=== PATIENT | female | born 1965 | race Caucasian/White ===

== ENCOUNTER 2024-02-28 17:37 | Inpatient (IN) | payer BC, OTHER ==
[~2024-02-28] VITALS: Ht 160 cm; Wt 119.1 kg
[2024-02-28 18:14] LABS: BASOPHILS % (AUTO) 0.3 % (0-1); EOSINOPHILS # (AUTO) 0.1 X10'3 (0-0.9); EOSINOPHILS % (AUTO) 1.7 % (0-6); HEMATOCRIT 41.7 % (35.0-45.0); HEMOGLOBIN 14.5 g/dl (12.0-16.0); LYMPHOCYTES # (AUTO) 1.6 X10'3 (1.1-4.8); LYMPHOCYTES % (AUTO) 21.3 % (21-51); MEAN CORPUSCULAR HEMOGLOBIN 32.1 PG (27.0-31.0); MEAN CORPUSCULAR HGB CONC 34.7 g/dL (33.0-36.5); MEAN CORPUSCULAR VOLUME 92.7 FL (78-98); MEAN PLATELET VOLUME 7.2 FL (7.4-10.4); MONOCYTES # (AUTO) 0.4 X10'3 (0-0.9); MONOCYTES % (AUTO) 5.9 % (2-12); NEUTROPHILS # (AUTO) 5.2 X10'3 (1.8-7.7); NEUTROPHILS % (AUTO) 70.8 % (42-75); PLATELET COUNT 150 X10'3 (140-440); RED CELL DISTRIBUTION WIDTH 13.3 % (11.5-14.5); WHITE BLOOD COUNT 7.4 X10'3 (4.5-11.0)
[2024-02-28 18:34] LABS: ALANINE AMINOTRANSFERASE 29 U/L (12-78); ALBUMIN 3.7 G/DL (3.4-5.0); ALKALINE PHOSPHATASE 123 IU/L (46-116); ANION GAP 8 (8-16); ASPARTATE AMINO TRANSFERASE 21 U/L (10-37); BILIRUBIN,TOTAL 0.7 MG/DL (0.1-1.0); BLOOD UREA NITROGEN 24 MG/DL (7-18); BUN/CREATININE RATIO 18.2 (10.0-20.0); CALCIUM 9.2 MG/DL (8.5-10.1); CHLORIDE 105 MMOL/L (99-107); CREATININE 1.32 MG/DL (0.40-0.90); GLUCOSE 105 MG/DL (70-104); POTASSIUM 3.9 MMOL/L (3.5-5.1); SODIUM 141 MMOL/L (135-145); TOTAL CARBON DIOXIDE 27.7 MMOL/L (24-32); TOTAL PROTEIN 7.5 G/DL (6.4-8.2); eCRCL 38 ML/MIN; eGFR 41 ML/MIN
[2024-02-28 18:41] LABS: PRO BRAIN NATRIURETIC PEPTIDE 130 PG/ML (0-125)
[2024-02-28] MEDS ORDERED: iohexol 350MG/ML 100ml bottle IV ONE (19:44)
[2024-02-28] MEDS: heparin 10,000 units/1 ML INJ IV ONE ×2 (19:45→21:17)
[2024-02-28 19:58] LABS: APTT 25 SECONDS (22-32); PROTHROMBIN TIME 10.3 SECONDS (9.0-12.0)
[2024-02-28] MEDS: aspirin 81mg tab.chew PO ONE (20:03)
[2024-02-28] MEDS: morphine 4 MG/ML inj SYRINge IV ONE ×2 (20:15→21:57)
[2024-02-28] MEDS ORDERED: potassium Cl 20 mEq SR tablet PO PRN ×2 (21:10)
[2024-02-28] MEDS ORDERED: magnesium sulf-water 4G/100mL 100 ML IV PRN (21:10)
[2024-02-28] MEDS ORDERED: magnesium sulf-water 2g/50mL 50 ML IV PRN (21:10)
[2024-02-28] MEDS ORDERED: magnesium Cl slow-release 64mg tablet PO PRN (21:10)
[2024-02-28] MEDS ORDERED: ondansetron/PF 4mg/2ml inj IV PRN (21:10)
[2024-02-28] MEDS ORDERED: potassium Cl 40MEQ/1/2NS 520ml 520 ML IV PRN (21:10)
[2024-02-28] MEDS ORDERED: mag hydrox/Alum hydrox/simeth 30ml oral suspension PO PRN (21:10)
[2024-02-28] MEDS ORDERED: magnesium hydroxide 30ml (MOM) UD suspension PO PRN (21:10)
[2024-02-28] MEDS: heparin 25,000 UNIT/250ml bag 250 ML IV PRN (21:19)
[2024-02-28] MEDS: nitroGLYCERIN 1gm ointment UD TP ONE (21:57)
[2024-02-28] MEDS: normal saline 1000ml 1,000 ML IV SCH (21:57)
[2024-02-28] MEDS: MESSAGE TO NURSING IV ONE (22:57)
[2024-02-29] VITALS (10 sets, daily range): BP systolic 96–143; BP diastolic 50–86; PULSE 66–74; RESP 13–20; TEMP 96.2–98; O2SAT 93–98
[2024-02-29] MEDS ORDERED: BACL20TA PO (00:46)
[2024-02-29] MEDS ORDERED: LORA-269 PO (00:46)
[2024-02-29] MEDS ORDERED: MELO-102 PO (00:46)
[2024-02-29] MEDS ORDERED: BUPR300T53 PO (00:46)
[2024-02-29] MEDS ORDERED: METO-411 PO (00:46)
[2024-02-29] MEDS ORDERED: ROSU40TA PO (00:46)
[2024-02-29] MEDS ORDERED: ZOLP5TAB8 PO (00:46)
[2024-02-29] MEDS ORDERED: ISOS30TA84 PO (00:46)
[2024-02-29] MEDS ORDERED: FURO-150 PO (00:46)
[2024-02-29] MEDS ORDERED: FLUT1BLS4 INH (00:46)
[2024-02-29] MEDS ORDERED: ASPI81TA52 PO (00:46)
[2024-02-29] MEDS ORDERED: POTA-208 PO (00:46)
[2024-02-29] MEDS ORDERED: ESCI20TA51 PO (00:46)
[2024-02-29] MEDS: zolpidem 5mg tablet PO ONE (02:33)
[2024-02-29 04:02] LABS: BASOPHILS % (AUTO) 0.2 % (0-1); EOSINOPHILS # (AUTO) 0.1 X10'3 (0-0.9); EOSINOPHILS % (AUTO) 2.1 % (0-6); HEMATOCRIT 39.1 % (35.0-45.0); HEMOGLOBIN 13.7 g/dl (12.0-16.0); LYMPHOCYTES # (AUTO) 2.4 X10'3 (1.1-4.8); LYMPHOCYTES % (AUTO) 43.1 % (21-51); MEAN CORPUSCULAR HGB CONC 34.9 g/dL (33.0-36.5); MEAN CORPUSCULAR VOLUME 91.6 FL (78-98); MEAN PLATELET VOLUME 7.2 FL (7.4-10.4); MONOCYTES # (AUTO) 0.3 X10'3 (0-0.9); MONOCYTES % (AUTO) 5.4 % (2-12); NEUTROPHILS # (AUTO) 2.7 X10'3 (1.8-7.7); NEUTROPHILS % (AUTO) 49.2 % (42-75); PLATELET COUNT 119 X10'3 (140-440); RED BLOOD COUNT 4.27 X10'6 (4.20-5.60); RED CELL DISTRIBUTION WIDTH 13.3 % (11.5-14.5); WHITE BLOOD COUNT 5.5 X10'3 (4.5-11.0)
[2024-02-29 04:16] LABS: ALANINE AMINOTRANSFERASE 25 U/L (12-78); ALBUMIN 3.5 G/DL (3.4-5.0); ALKALINE PHOSPHATASE 106 IU/L (46-116); ANION GAP 7 (8-16); ASPARTATE AMINO TRANSFERASE 20 U/L (10-37); BILIRUBIN,TOTAL 0.9 MG/DL (0.1-1.0); BLOOD UREA NITROGEN 22 MG/DL (7-18); BUN/CREATININE RATIO 23.7 (10.0-20.0); CALCIUM 8.4 MG/DL (8.5-10.1); CHLORIDE 104 MMOL/L (99-107); CREATININE 0.93 MG/DL (0.40-0.90); GLUCOSE 98 MG/DL (70-104); POTASSIUM 3.6 MMOL/L (3.5-5.1); SODIUM 138 MMOL/L (135-145); TOTAL CARBON DIOXIDE 27.2 MMOL/L (24-32); TOTAL PROTEIN 6.9 G/DL (6.4-8.2); eCRCL 54 ML/MIN; eGFR 62 ML/MIN
[2024-02-29] MEDS: heparin 10,000 units/1 ML INJ IV PRN (04:33)
[2024-02-29] MEDS: MESSAGE TO NURSING IV ONE ×2 (04:36→11:30)
[2024-02-29] MEDS ORDERED: metoprolol succinate 25mg (24-HOUR) SR. Tablet PO SCH (08:00)
[2024-02-29] MEDS: UMECLIDIN IH SCH (08:00)
[2024-02-29] MEDS: VILANTER IH SCH (08:00)
[2024-02-29] MEDS: docusate sod 100mg capsule PO SCH (08:00)
[2024-02-29] MEDS: FLUTICASONE IH SCH (08:00)
[2024-02-29] MEDS: K and/or MAG REPLACEMENT MC SCH (08:00)
[2024-02-29] MEDS: nitroGLYCERIN 0.4mg SUBLingual tab SL PRN (09:48)
[2024-02-29] MEDS: potassium Cl 20 mEq SR tablet PO SCH (09:54)
[2024-02-29] MEDS: atorvastatin 20mg tablet PO SCH (09:55)
[2024-02-29] MEDS: isosorbide mononitrate 30mg tab.SR.24H PO SCH (09:55)
[2024-02-29] MEDS: BUPROPION HCL 150MG XL 24 HR 150 MG TAB PO SCH (09:55)
[2024-02-29] MEDS ORDERED: morphine 4 MG/ML inj SYRINge IV PRN (10:15)
[2024-02-29] MEDS ORDERED: nitroGLYCERIN-Tridil 50MG/D5W 250 ML IV SCH (10:20)
[2024-02-29] MEDS: acetaminophen 325mg tablet PO PRN (10:29)
[2024-02-29] MEDS ORDERED: heparin 1,000unit/ml 10ml vial 10 ML ONE (10:48)
[2024-02-29] MEDS ORDERED: fentaNYL/PF 50MCG/1 ML 2ML syringe ONE (10:48)
[2024-02-29] MEDS ORDERED: LIDOcaine 1% 30ml preserv. free vial ONE (10:48)
[2024-02-29] MEDS ORDERED: verapamil 2.5 mg/ml inj IV ONE (10:48)
[2024-02-29] MEDS ORDERED: midazolam 1 mg/ML 2ml injection ONE (10:48)
[2024-02-29] MEDS ORDERED: nitroGLYCERIN 500mcg/5mL D5W 5 ML IV ONE (10:49)
[2024-02-29] MEDS ORDERED: iohexol 350 MG/ML 50ML vial IV ONE (11:22)
[2024-02-29] MEDS ORDERED: diphenhydrAMINE 50 mg/ml inj ONE (11:51)
[2024-02-29] MEDS ORDERED: iohexol 350MG/ML 100ml bottle IV ONE (12:32)
[2024-02-29 12:35] LABS: ISTAT HGB ART 12.6 g/dl (12.0-16.0); ISTAT Hct ART 37 %PCV (35-45); ISTAT O2 SATURATION ARTERIAL 96 % (95-98); ISTAT SOURCE ART
[2024-02-29] MEDS ORDERED: OXAZEpam 15mg capsule PO PRN (13:00)
[2024-02-29] MEDS ORDERED: HYDROcodone/acetaminophen 5mg/325mg tablet PO PRN (13:00)
[2024-02-29] MEDS: normal saline 1000ml 1,000 ML IV ONE (13:12)
[2024-02-29] MEDS: diltiazem CD 120mg capsule (once-daily) PO SCH (13:28)
[2024-02-29] MEDS: isosorbide mononitrate 30mg tab.SR.24H PO ONE (13:28)
[2024-02-29] MEDS: furosemide 20MG tablet PO SCH (13:29)
[2024-02-29] MEDS: morphine 2 MG/ML inj. syringe IV PRN (13:33)
[2024-02-29] MEDS: MELOXICAM 7.5 MG TABLET PO SCH (20:12)
[2024-02-29] MEDS: ESCITALOPRAM 10 mg tablet 10 MG TABLET PO SCH (20:13)
[2024-02-29] MEDS: HYDROcodone/acetaminophen 10/325mg tab PO PRN (20:15)
[2024-02-29] MEDS: LORazepam 1 MG tablet PO PRN (20:20)
[2024-02-29] MEDS ORDERED: DILT240C94 PO (21:27)
[2024-02-29] MEDS ORDERED: ISOS60TA71 PO (21:27)
[2024-02-29] MEDS: zolpidem 5mg tablet PO SCH (22:28)
[2024-03-01 02:00] VITALS: BP 97/50; PULSE 67; RESP 20; TEMP 97.6; O2SAT 95
[2024-03-01 06:00] VITALS: BP 102/43; PULSE 68; RESP 17; TEMP 97.3; O2SAT 94
[2024-03-01] MEDS: FLU VACC TS2024-25(6MOS UP)/PF 45 MCG/0.5 ML SYRINGE IMVAC ONE (06:57)
[2024-03-01] MEDS: pneumococcal 23-VAL P-sac vacc 25 mcg/0.5ml vial IMVAC ONE (06:57)
[2024-03-01 08:30] VITALS: RESP 17; O2SAT 94
[2024-03-01] MEDS: isosorbide mononitrate 30mg tab.SR.24H PO SCH (08:36)
[2024-03-01 08:59] LABS: BASOPHILS % (AUTO) 0.2 % (0-1); EOSINOPHILS # (AUTO) 0.1 X10'3 (0-0.9); EOSINOPHILS % (AUTO) 2.5 % (0-6); HEMATOCRIT 38.2 % (35.0-45.0); HEMOGLOBIN 12.9 g/dl (12.0-16.0); LYMPHOCYTES # (AUTO) 1.5 X10'3 (1.1-4.8); LYMPHOCYTES % (AUTO) 33.4 % (21-51); MEAN CORPUSCULAR HEMOGLOBIN 31.6 PG (27.0-31.0); MEAN CORPUSCULAR HGB CONC 33.9 g/dL (33.0-36.5); MEAN CORPUSCULAR VOLUME 93.2 FL (78-98); MEAN PLATELET VOLUME 7.4 FL (7.4-10.4); MONOCYTES # (AUTO) 0.3 X10'3 (0-0.9); MONOCYTES % (AUTO) 7.2 % (2-12); NEUTROPHILS # (AUTO) 2.5 X10'3 (1.8-7.7); NEUTROPHILS % (AUTO) 56.7 % (42-75); PLATELET COUNT 112 X10'3 (140-440); WHITE BLOOD COUNT 4.5 X10'3 (4.5-11.0)
[2024-03-01 09:22] LABS: ALANINE AMINOTRANSFERASE 28 U/L (12-78); ALBUMIN 3.1 G/DL (3.4-5.0); ALBUMIN/GLOBULIN RATIO 0.9 (1.1-1.5); ALKALINE PHOSPHATASE 94 IU/L (46-116); ANION GAP 7 (8-16); ASPARTATE AMINO TRANSFERASE 30 U/L (10-37); BILIRUBIN,TOTAL 0.8 MG/DL (0.1-1.0); BLOOD UREA NITROGEN 14 MG/DL (7-18); BUN/CREATININE RATIO 17.1 (10.0-20.0); CALCIUM 8.3 MG/DL (8.5-10.1); CHLORIDE 104 MMOL/L (99-107); CREATININE 0.82 MG/DL (0.40-0.90); GLUCOSE 95 MG/DL (70-104); POTASSIUM 3.6 MMOL/L (3.5-5.1); SODIUM 140 MMOL/L (135-145); TOTAL CARBON DIOXIDE 29.2 MMOL/L (24-32); TOTAL PROTEIN 6.5 G/DL (6.4-8.2); eCRCL 61 ML/MIN; eGFR 71 ML/MIN
[2024-03-01 09:45] VITALS: RESP 16
[2024-03-01] MEDS: acetaminophen 325mg tablet PO PRN (12:52)
[2024-03-03 05:52] LABS: ISTAT HGB MIX 12.6 g/dl (12.0-16.0); ISTAT Hct MIX 37 %PCV (35-45); ISTAT O2 SATURATION MIX VENOUS 72 % (60-80); ISTAT SOURCE VEN
== END 2024-03-01 15:30 | disposition home or self-care (01) | DRG 280 ==
LOC: ER 17:38 → ED HOLD 20:38 → PCU 3S 23:00 → EDBEDREQ 23:06
PROVIDERS: ADMIT Internal Medicine Critical Care Medicine; ATTEND Family Medicine
PROC: B32T1ZZ Computerized Tomography (CT Scan) of Left Pulmonary Artery using Low Osmolar Contrast (ICD-10-PCS; 2024-02-28)
PROC: B3201ZZ Computerized Tomography (CT Scan) of Thoracic Aorta using Low Osmolar Contrast (ICD-10-PCS; 2024-02-28)
PROC: B32S1ZZ Computerized Tomography (CT Scan) of Right Pulmonary Artery using Low Osmolar Contrast (ICD-10-PCS; 2024-02-28)
PROC: 4A023N8 Measurement of Cardiac Sampling and Pressure, Bilateral, Percutaneous Approach (ICD-10-PCS; principal; 2024-02-29)
PROC: B2111ZZ Fluoroscopy of Multiple Coronary Arteries using Low Osmolar Contrast (ICD-10-PCS; 2024-02-29)
PROC: B2151ZZ Fluoroscopy of Left Heart using Low Osmolar Contrast (ICD-10-PCS; 2024-02-29)
PROC: B3111ZZ Fluoroscopy of Right Brachiocephalic-Subclavian Artery using Low Osmolar Contrast (ICD-10-PCS; 2024-02-29)
PROC: B41F1ZZ Fluoroscopy of Right Lower Extremity Arteries using Low Osmolar Contrast (ICD-10-PCS; 2024-02-29)
DX: I25.10 Atherosclerotic heart disease of native coronary artery without angina pectoris (principal); N17.0 Acute kidney failure with tubular necrosis; I21.4 Non-ST elevation (NSTEMI) myocardial infarction; Z68.42 Body mass index [BMI] 45.0-49.9, adult; I24.9 Acute ischemic heart disease, unspecified; I48.0 Paroxysmal atrial fibrillation; F41.9 Anxiety disorder, unspecified; F32.A Depression, unspecified; G47.33 Obstructive sleep apnea (adult) (pediatric); E78.5 Hyperlipidemia, unspecified; I10 Essential (primary) hypertension; E66.9 Obesity, unspecified; Z90.710 Acquired absence of both cervix and uterus; Z98.51 Tubal ligation status; Z63.4 Disappearance and death of family member
CPT/HCPCS: 36216; 36415; 70450; 71045; 71275; 76937; 80053; 82803; 83735; 83880; 84484; 85014; 85025; 85347; 85610; 85730; 87081; 90686; 90732; 93005; 93460; 97161; 99152; 99153; A6258; C1725; C1751; C1760; C1894; G0378; J1200; J1644; J2003; J2250; J2270; J3010; J3490; J7030; Q9967

== ENCOUNTER 2025-01-23 06:53 | Day surgery (SDC) | payer OTHER ==
[2025-01-19 15:13] LABS: MEAN PLATELET VOLUME 7.5 FL (7.4-10.4); PRE OP HEMATOCRIT 42.8 % (35.0-45.0); PRE OP HEMOGLOBIN 14.8 g/dL (12.0-16.0); PRE OP PLATELET COUNT 146 X10'3 (140-440); PRE OP WHITE BLOOD COUNT 6.3 10'3 (4.8-10.8); RED CELL DISTRIBUTION WIDTH 13.2 % (11.5-14.5)
[2025-01-19 15:25] LABS: CREATININE 0.93 MG/DL (0.40-0.90); PRE OP ALT 30 U/L (30-65); PRE OP ANION GAP 6 (8-16); PRE OP AST 27 U/L (10-37); PRE OP BILIRUB, TOTAL 0.8 MG/DL (0.0-1.0); PRE OP GLUCOSE 102 MG/DL (70-104); PRE OP POTASSIUM 3.8 MMOL/L (3.4-5.1); PRE OP SODIUM 141 MMOL/L (135-145); TOTAL CARBON DIOXIDE 30.8 MMOL/L (24-32); eGFR 61 ML/MIN
--- NOTE | 2025-01-19 15:49 | RADIOLOGY REPORT ---
EXAM: CT CT CHEST ION INDICATION: SWELLING;MASS;LUMP TECHNIQUE: Noncontrast axial images of the chest have been obtained along with coronal and sagittal reformatted images. All CT scans at this facility use dose modulation, iterative reconstruction, and/or weight based dosing when appropriate to reduce radiation dose to as low as reasonably achievable. COMPARISON: CT CT CHEST W/ IV CONTRAST on DOS: 12/30/24 FINDINGS: LOWER NECK: Unremarkable LYMPH NODES/MEDIASTINUM: No abnormal lymph nodes by CT size criteria CARDIOVASCULAR: Normal cardiac size. No pericardial effusion. No aneurysmal dilatation of the great vessels. UPPER ABDOMEN: Splenorenal varices MUSCULOSKELETAL: No acute fracture or aggressive focal osseous lesion. Multilevel degenerative change of the visualized spine. CHEST WALL: Unremarkable. LUNG PARENCHYMA/PLEURAL SPACE: Masslike consolidation in the right middle lobe of the junction of the right minor and right major fissures measuring up to 2.1 cm. No pleural effusion or pneumothorax. Imaging finding is unchanged from 12/30/24. No interval cavitation. Small unchanged 3-4 mm pulmonary nodule in the right lower lobe. Unchanged 2 mm pulmonary nodule in the posterior aspect of the right upper lobe. IMPRESSION: 1. Unchanged masslike consolidation in the right middle lobe at the junction of the right minor and right major fissures. 2. Unchanged additional pulmonary nodules in the right lung as detailed above. 3. No interval suspicious lymphadenopathy.
[2025-01-23] VITALS (18 sets, daily range): BP systolic 84–122; BP diastolic 46–66; PULSE 58–72; RESP 6–16; TEMP 97.4; O2SAT 85–100
[~2025-01-23] VITALS: Ht 160 cm; Wt 100.6 kg
[~2025-01-23 06:53] MED LIST: ASPI81TA52 PO; BACL20TA PO; DOCUMENT DATE & TIME OF BETA-BLOCKER PO ONE; ESCI20TA51 PO; FLEC50TA28 PO; FURO-150 PO; ISOS60TA71 PO; LORA-269 PO; MELO-102 PO; METO-384 PO; NITR0.4T51 SL; POTA-208 PO; ZOLP5TAB19 PO
[2025-01-23] MEDS: ringers solution, lacted 1,000 ML IV SCH ×2 (07:27→11:59)
[2025-01-23] MEDS ORDERED: SEMA0.258 SQ (08:01)
[2025-01-23] MEDS ORDERED: labetalol 20mg/4ml (5mg/ml) syringe IV PRN (09:15)
[2025-01-23] MEDS ORDERED: fentaNYL/PF 50MCG/1 ML 2ML syringe IV PRN ×2 (09:15)
[2025-01-23] MEDS ORDERED: morphine 4 MG/ML inj SYRINge IV PRN (09:15)
[2025-01-23] MEDS ORDERED: enalaprilat 1.25mg/ml 2ml vial IV PRN (09:15)
[2025-01-23] MEDS ORDERED: HYDROmorphone/PF 0.2 MG/ML SYRINGE IV PRN ×2 (09:15)
[2025-01-23] MEDS ORDERED: ondansetron/PF 4mg/2ml inj IV PRN (09:15)
[2025-01-23] MEDS ORDERED: fentaNYL/PF 50MCG/1 ML 2ML syringe ONE (09:59)
[2025-01-23] MEDS ORDERED: midazolam 1 mg/ML 2ml injection ONE (10:02)
[2025-01-23] MEDS ORDERED: propofol inj 20 ML IV ONE (10:04)
[2025-01-23] MEDS ORDERED: rocuronium 10mg/ml inj IV ONE (10:04)
[2025-01-23] MEDS ORDERED: dexamethasone sod phosphate 4mg/ml inj. ONE (10:05)
[2025-01-23] MEDS ORDERED: ondansetron/PF 4mg/2ml inj ONE (11:20)
[2025-01-23] MEDS ORDERED: glycopyrrolate 0.2mg/ml inj ONE (11:31)
[2025-01-23] MEDS: albuterol 2.5 MG/3 ML nebule NEB STA (12:20)
--- NOTE | 2025-01-23 13:27 | RADIOLOGY REPORT ---
EXAM: DI CHEST,SINGLE VIEW Indication: DECREASED OXYGENATION Technique: Single frontal view of the chest was obtained Comparison: CT CT CHEST ION on DOS: 01/19/25, CT CT CHEST W/ IV CONTRAST on DOS: 12/30/24, DI CHEST,SINGLE VIEW on DOS: 12/30/24, CT CTA CHEST PE on DOS: 02/28/24, DI CHEST,SINGLE VIEW on DOS: 02/28/24 FINDINGS: Lines and Tubes: None Lungs: Unchanged consolidation in the right mid lung. Pleura: No effusion. No pneumothorax. Cardiomediastinal contours: Unremarkable Bones: No acute osseous abnormality. IMPRESSION: Unchanged masslike consolidation in the right mid lung.
--- NOTE | 2025-01-23 14:10 | OPERATIVE REPORT ---
DATE OF SURGERY: 01/23/2025 DICTATING PHYSICIAN: Ramana Ellison MD PROCEDURE: Bronchoscopy. INDICATIONS: The patient with a persistent right-sided nodule. POSTOPERATIVE DIAGNOSIS: The patient with a persistent right-sided nodule. DESCRIPTION OF PROCEDURE: The patient signed a consent after indications, potential complications were explained. We did a robotic bronchoscopy with the [facility] navigational system also with a radial ultrasound, multiple transbronchial biopsies, multiple transbronchial fine needle aspirations, cone beam CT scan on the bedside, then an EBUS and BAL and multiple suctioning with a bronchoscope. The patient was intubated and sedated per protocol. We already had a plan set up for the robotic bronchoscopy system. I navigated to the mass and recognized that the navigation system was not on the appropriate place, so I did a cone beam CT scan and indeed, the catheter went onto a wind pipe that was not close to the lesion, so we ended up recalibrating and redoing the whole process and re-navigated to the target and were able to get a good signal, but to make sure that we were in the right place, we did another cone beam CT scan and this time with the needle into the mass and indeed, we were right in the middle of the mass where the needle was present right in the middle of the mass. We got a really good sample. Done multiple samples, got about 5 different passes on all different areas, including transbronchial biopsies and also transbronchial fine needle aspiration. Every time we did this, we changed our positions. We confirmed the position of the catheter with a radial ultrasound. After that, we switched over to the endobronchial ultrasound bronchoscope (EBUS) and there were multiple paratracheal lymph nodules. Paratracheal lymph nodes are slightly enlarged. We started on 10L and then 7 and then 10R. Then after that, we did a BAL on the right upper lobe. The patient tolerated the procedure well. No complications. We made sure that there is no pneumothorax and we also got an x-ray postop because she was saturating on the low side. Ramana Ellison MD TID: [id number] RECEIPT: [id number] /[facility] [place]
--- NOTE | 2025-01-28 12:43 | PATHOLOGY REPORT ---
[facility] [address] [place] [address] NON-GLAZE WIPER CYTOLOGY REPORT CaseNumber: [id number] Surgeon:Ramana Ellison PA-C CLINICAL INFORMATION CLINICAL INFORMATION: Right side mass, able to get a good sample. DIAGNOSIS DIAGNOSIS: A.LUNG, RIGHT LOWER LOBE; FINE NEEDLE ASPIRATION - SPARSE MIXED INFLAMMATION AND BLOOD. DIAGNOSIS: B.LUNG, RIGHT LOWER LOBE; BIOPSY - BENIGN LUNG TISSUE. DIAGNOSIS: C.LYMPH NODE, STATION 10L; FINE NEEDLE ASPIRATION - RARE REACTIVE LYMPHOID TISSUE. - RARE REACTIVE BRONCHIAL EPITHELIAL CELLS. DIAGNOSIS: D.LYMPH NODE, STATION 7; FINE NEEDLE ASPIRATION - RARE REACTIVE LYMPHOID TISSUE. - RARE REACTIVE BRONCHIAL EPITHELIAL CELLS. DIAGNOSIS: E.LYMPH NODE, STATION 10R; FINE NEEDLE ASPIRATION - RARE REACTIVE LYMPHOID TISSUE. - RARE REACTIVE BRONCHIAL EPITHELIAL CELLS. MICROSCOPIC DESCRIPTION A. LUNG, RIGHT LOWER LOBE MICROSCOPIC DESCRIPTION: 1 H&E stained cellblock and 1 double cytospin slide are examined. They show predominantly inflammatory cells intermixed with blood. B. LUNG, RIGHT LOWER LOBE MICROSCOPIC DESCRIPTION: 1 H&E-stained slide is examined showing a core biopsy of alveolar lung tissue in a background of blood. There is mild interstitial chronic inflammation. No malignant features are identified. C. LYMPH NODE, STATION 10L MICROSCOPIC DESCRIPTION: Specimens C through E show similar histologic findings will be described together here. 3 H&E-stained cell blocks and 3 cytospin slides are examined. Cell blocks show scant fragments of cartilage, mucin, lymphoid tissue, and reactive bronchial epithelial cells. There are no malignant features. The cytospin for specimen C shows tight aggregates of reactive bronchial epithelial cells with mildly increased NC ratios. Numerous pulmonary macrophages are present. The cellblock for specimen D is acellular. The cellblock for specimen E shows abundant lymphoid tissue with reactive sinus histiocytosis and pigment laden histiocytes. I do not see definite granulomas. There are no malignant features. D. LYMPH NODE, STATION 7 MICROSCOPIC DESCRIPTION: Performed. E. LYMPH NODE, STATION 10R MICROSCOPIC DESCRIPTION: Performed. GROSS DESCRIPTION A. LUNG, RIGHT LOWER LOBE GROSS DESCRIPTION: Specimen is received in cytostat red, labeled with the patient's name and identified as "RLL FNA", having a total volume of 12.5mL of bloody cytostat red. One double cytospin slide and one cell block is prepared. The cell block is submitted as A1. The time at which the specimen was collected was 1015. The time at which the specimen was placed in formalin was 1015. (b) B. LUNG, RIGHT LOWER LOBE GROSS DESCRIPTION: Received in a container of formalin labeled with the patient's name, number, and "RLL biopsy "is a 0.6 x 0.4 x 0.2 cm aggregate of irregularly shaped pieces of oliva tissue submitted entirely as B1.The time at which the specimen was removed was not provided. The time at which the specimen was placed in formalin was not provided. C. LYMPH NODE, STATION 10L GROSS DESCRIPTION: Specimen is received in cytostat red, labeled with the patient's name and identified as "lymph node 10L", having a total volume of 10mL of clear cytostat red. One double cytospin slide and one cell block is prepared. The cell block is submitted as C1. The time at which the specimen was collected was 1015. The time at which the specimen was [facility] in [facility] D. LYMPH NODE, STATION 7 GROSS DESCRIPTION: Specimen is received in cytostat red, labeled with the patient's name and identified as "lymph node 7", having a total volume of 101mL of cleasr cytostat red. One double cytospin slide and one cell block is prepared. The cell block is submitted as D1. The time at which the specimen was collected was 1015. The time at which the specimen was placed in formalin was 1015. [facility] E. LYMPH NODE, STATION 10R GROSS DESCRIPTION: Specimen is received in cytostat red, labeled with the patient's name and identified as "lymph node 10R", having a total volume of 7.5mL of slightly cloudy cytostat red. One double cytospin slide and one cell block is prepared. The cell block is submitted as E1. The time at which the specimen was collected was 1015. The time at which the specimen was placed in formalin was 1015. [facility] Electronically signed by: Chai Mcpherson, 01/28/2025 12:05:00 PM
== END 2025-01-23 14:15 | disposition home or self-care (01) ==
LOC: PAS 06:53
PROVIDERS: ATTEND Internal Medicine Critical Care Medicine
DX: R22.2 Localized swelling, mass and lump, trunk (principal); M19.90 Unspecified osteoarthritis, unspecified site; J43.9 Emphysema, unspecified; F32.9 Major depressive disorder, single episode, unspecified; Z90.710 Acquired absence of both cervix and uterus; Z98.890 Other specified postprocedural states; Z84.19 Family history of other disorders of kidney and ureter; Z82.49 Family history of ischemic heart disease and other diseases of the circulatory system; Z80.3 Family history of malignant neoplasm of breast; Z82.3 Family history of stroke; Z83.438 Family history of other disorder of lipoprotein metabolism and other lipidemia; Z79.899 Other long term (current) drug therapy; Z87.891 Personal history of nicotine dependence; Z88.2 Allergy status to sulfonamides; Z88.8 Allergy status to other drugs, medicaments and biological substances
CPT/HCPCS: 31624; 31627; 31628; 31629; 31653; 36415; 71045; 71250; 80053; 82948; 85025; 87015; 87070; 87116; 87206; 94640; 94760; J1100; J2250; J2405; J2704; J2710; J3010; J3490; J7120; Z7506; Z7508; Z7512; 31622; 31625; 31626; 31654; A4615; A4618